=== PATIENT | male | born 1985 | race Caucasian/White ===

== ENCOUNTER → 2017-03-07 | Outpatient (CLI) | payer OTHER ==
--- NOTE | 2017-03-07 13:17 | REP ---
LEFT SHOULDER SERIES: Four views of the left shoulder are performed. On the scapular Y view, there is a smooth lucency in the scapula inferior to the glenoid anteriorly which probably represents a vascular groove. Otherwise no acute fracture or dislocation is seen of the visualized osseous structures. The joint spaces appear normal. IMPRESSION: Smooth lucency horizontally in the scapula as seen on scapular Y views. This probably represents a vascular groove. If there is clinical concern for scapular fracture, recommend further evaluation with CT scan. Signed by Nestor Garcia MD 03/07/2017 01:29 P
--- NOTE | 2017-03-07 14:44 | REP ---
FACIAL BONES, EIGHT VIEWS: HISTORY: Contusion. The patient is status post right frontoparietal craniotomy. There is no acute fracture or bone lesion. The sinuses are clear. IMPRESSION: There is no fracture or bone lesion. Signed by Mitch Whaley MD 03/07/2017 02:47 P
== END ==
LOC: M WUC 11:26
PROVIDERS: ATTEND Physician Assistant
DX: S00.83XA Contusion of other part of head, initial encounter (principal); M25.512 Pain in left shoulder; X58.XXXA Exposure to other specified factors, initial encounter; Y93.9 Activity, unspecified; Y92.9 Unspecified place or not applicable; Y99.8 Other external cause status

== ENCOUNTER → 2017-03-10 | Outpatient (CLI) | payer MEDICAID | LOC: M OUTALCOH 07:38 | PROVIDERS: ATTEND Psychiatry & Neurology Psychiatry | DX: Z13.9 Encounter for screening, unspecified (principal); F10.20 Alcohol dependence, uncomplicated ==

== ENCOUNTER 2017-03-18 08:00 | Outpatient (RCR) | payer MEDICAID | END 2017-03-21 | LOC: M OUTALCOH 08:00 | PROVIDERS: ATTEND Psychiatry & Neurology Psychiatry | DX: Z13.9 Encounter for screening, unspecified (principal); F10.20 Alcohol dependence, uncomplicated ==

== ENCOUNTER → 2023-03-24 | Outpatient (CLI) | payer MEDICAID, OTHER | LOC: M WUC 08:11 | PROVIDERS: ATTEND Physician Assistant | DX: M25.551 Pain in right hip (principal); M25.552 Pain in left hip; M54.50 Low back pain, unspecified; M47.817 Spondylosis without myelopathy or radiculopathy, lumbosacral region; M41.87 Other forms of scoliosis, lumbosacral region ==

== ENCOUNTER → 2023-07-11 | Outpatient (CLI) | payer OTHER ==
[~2023-07-11] MED LIST: ISOVUE-300 61% 100ML VIAL As Ordered ONE; LIDOCAINE 1% MDV 20ML VIAL As Ordered ONE; methylPREDNISolone SUSP 40MG/ML 1ML VIAL (DEPO MEDROL) As Ordered ONE
== END ==
LOC: M RAD 14:22
PROVIDERS: ATTEND Physician Assistant
DX: M16.11 Unilateral primary osteoarthritis, right hip (principal)
CPT/HCPCS: 20610; 77002; J1030; Q9967